=== PATIENT | female | born 1995 | race Two or more races ===

== ENCOUNTER 2024-11-06 19:28 | Emergency (ER) | payer OTHER ==
[~2024-11-06] VITALS: Ht 165.1 cm; Wt 102.1 kg
[2024-11-06 21:13] LABS: *URINE HCG, QUAL NEGATIVE (NEGATIVE)
[2024-11-06] MEDS ORDERED: ACETAMINOPHEN 500 MG TABLET ONE (21:26)
[2024-11-06] MEDS: ACETAMINOPHEN 500 MG TABLET PO ONE (21:28)
[2024-11-06] MEDS ORDERED: NEOMY/BACITRA/POLYMYXIN B OINT UD PACKET TP ONE (22:45)
[2024-11-06] MEDS: NEOMY/BACITRA/POLYMYXIN B OINT UD PACKET TP ONE (23:14)
[2024-11-07] MEDS ORDERED: CYCL5TAB PO (00:05)
[2024-11-07] MEDS ORDERED: NAPR-1009 PO (00:05)
[2024-11-07 00:11] VITALS: BP 144/82; O2SAT 97
== END 2024-11-07 00:11 | disposition home or self-care (01) ==
LOC: ER 19:28
DX: S06.0X0A Concussion without loss of consciousness, initial encounter (principal); S43.492A Other sprain of left shoulder joint, initial encounter; S63.591A Other specified sprain of right wrist, initial encounter; S30.1XXA Contusion of abdominal wall, initial encounter; S40.812A Abrasion of left upper arm, initial encounter; J45.909 Unspecified asthma, uncomplicated; Z88.7 Allergy status to serum and vaccine; Z60.2 Problems related to living alone; V43.52XA Car driver injured in collision with other type car in traffic accident, initial encounter; Y93.89 Activity, other specified; Y92.488 Other paved roadways as the place of occurrence of the external cause; Y99.8 Other external cause status
CPT/HCPCS: 73020; 73060; 73100; 84703; A4606; A4663; A9150